=== PATIENT | female | born 1935 | race Caucasian/White ===

== ENCOUNTER 2022-04-22 10:41 | Inpatient (IN) | payer OTHER ==
[~2022-04-22] VITALS: Ht 162.6 cm; Wt 63.5 kg
[2022-04-22 12:36] LABS: HEMOGLOBIN 11.7 gm/dl (12.3-15.3); RED BLOOD COUNT 4.09 M/UL (4.00-5.10); WHITE BLOOD COUNT 16.5 K/UL (4.5-11.0)
[2022-04-22] MEDS ORDERED: CITALOPRAM HBR10 MG PO (15:27)
[2022-04-22] MEDS ORDERED: OMEPRAZOLE40 MG PO (15:28)
[2022-04-22] MEDS ORDERED: FUROSEMIDE20 MG PO (15:28)
[2022-04-22] MEDS ORDERED: ARICEPT5 MG PO (15:29)
[2022-04-22] MEDS ORDERED: ULTRAM50 MG PO (15:29)
[2022-04-22] MEDS ORDERED: NORVASC10 MG PO (15:29)
[2022-04-22] MEDS ORDERED: ACETAMINOPHEN500 MG PO (15:30)
[2022-04-23 03:55] LABS: HEMOGLOBIN 11.9 gm/dl (12.3-15.3); RED BLOOD COUNT 4.13 M/UL (4.00-5.10); WHITE BLOOD COUNT 13.4 K/UL (4.5-11.0)
[2022-04-24 02:55] LABS: WHITE BLOOD COUNT 12.5 K/UL (4.5-11.0)
[2022-04-24 02:56] LABS: HEMOGLOBIN 9.9 gm/dl (12.3-15.3); RED BLOOD COUNT 3.42 M/UL (4.00-5.10)
[2022-04-24 09:30] LABS: RED BLOOD COUNT 3.53 M/UL (4.00-5.10)
[2022-04-24 09:38] LABS: WHITE BLOOD COUNT 20.9 K/UL (4.5-11.0)
--- NOTE | 2022-04-24 09:44 | NUR ---
0710 - PATIENT LEFT THE FLOOR VIA BED TO SURGERY FOR LEFT HIP REPAIR.
[2022-04-25 04:46] LABS: HEMOGLOBIN 10.3 gm/dl (12.3-15.3); RED BLOOD COUNT 3.62 M/UL (4.00-5.10); WHITE BLOOD COUNT 19.6 K/UL (4.5-11.0)
[2022-04-26 04:33] LABS: HEMOGLOBIN 9.8 gm/dl (12.3-15.3); RED BLOOD COUNT 3.45 M/UL (4.00-5.10)
[2022-04-26 04:42] LABS: WHITE BLOOD COUNT 14.5 K/UL (4.5-11.0)
[2022-04-27 08:12] LABS: RED BLOOD COUNT 3.13 M/UL (4.00-5.10); WHITE BLOOD COUNT 14.4 K/UL (4.5-11.0)
[2022-04-27 08:25] LABS: BUN/CREATININE RATIO 19 (0-10)
[2022-04-27] MEDS ORDERED: IPRAT-ALBUT 0.5-3 ML NEB (14:12)
[2022-04-27] MEDS ORDERED: FERROUS SULFAT325 M2 PO (14:12)
[2022-04-27] MEDS ORDERED: CALCIUM500 M1 PO (14:12)
[2022-04-27] MEDS ORDERED: ENOXAPARIN40 MG/0.4 SC (14:12)
[2022-04-27] MEDS ORDERED: ULTRAM50 MG PO (15:20)
--- NOTE | 2022-04-27 15:44 | NUR ---
REPORT GIVEN TO JOE LOJA AT [facility] AT THIS TIME. PATIENT GOING TO [facility] FLOOR AND ROOM #[id number]
--- NOTE | 2022-04-27 15:46 | NUR ---
CALLED [facility] AT THIS TIME AND SCHEDULED TRANSPORT FOR THE PATIENT TO GO TO [facility]. REPORTS "THEY WILL BE HERE SOON THEY CAN" NO ETA GIVEN AT THIS TIME.
[2022-04-28 06:58] LABS: HEMOGLOBIN 9.6 gm/dl (12.3-15.3); RED BLOOD COUNT 3.38 M/UL (4.00-5.10); WHITE BLOOD COUNT 14.7 K/UL (4.5-11.0)
[2022-04-28] MEDS ORDERED: CEFUROXIME250 MG PO (13:29)
[2022-04-28] MEDS ORDERED: POTASSIUM CHLO20 ME1 PO (13:29)
--- NOTE | 2022-04-28 14:07 | NUR ---
ASCENCION [facility]YLER AND GAVE REPORT TO [facility] WHO IS EXPECTING THE PATIENT.
== END 2022-04-28 14:41 | DRG 481 ==
LOC: ER1 10:41 → M/S 15:02 → CDU 15:02 → M/S 23:11
PROVIDERS: Family Medicine; Internal Medicine; Orthopaedic Surgery; Physician Assistant Medical; ADMIT Internal Medicine
PROC: 0QPC04Z Removal of Internal Fixation Device from Left Lower Femur, Open Approach (ICD-10-PCS; 2022-04-24)
PROC: 0QS706Z Reposition Left Upper Femur with Intramedullary Internal Fixation Device, Open Approach (ICD-10-PCS; principal; 2022-04-24 07:30)
DX: S72.142A Displaced intertrochanteric fracture of left femur, initial encounter for closed fracture (principal); M87.851 Other osteonecrosis, right femur; N30.00 Acute cystitis without hematuria; I10 Essential (primary) hypertension; F03.90 Unspecified dementia, unspecified severity, without behavioral disturbance, psychotic disturbance, mood disturbance, and anxiety; W18.39XA Other fall on same level, initial encounter; E87.6 Hypokalemia; Z96.698 Presence of other orthopedic joint implants; D64.9 Anemia, unspecified; K21.9 Gastro-esophageal reflux disease without esophagitis; Z90.710 Acquired absence of both cervix and uterus; Z83.3 Family history of diabetes mellitus; Z82.49 Family history of ischemic heart disease and other diseases of the circulatory system; Y92.009 Unspecified place in unspecified non-institutional (private) residence as the place of occurrence of the external cause
CPT/HCPCS: 36415; 70450; 71045; 72170; 73502; 73552; 73560; 73600; 73700; 76000; 80048; 80053; 80202; 81001; 82550; 82553; 83540; 83550; 83735; 83880; 84132; 84484; 85025; 85027; 85610; 86850; 86900; 86901; 87040; 87081; 87086; 94640; 94664; 94760; 96365; 96375; 96376; 97110; 97110-GP-CQ; 97162; 97166; 97530; 97530-GP-CQ; 99285; C1713; J0690; J1100; J1170; J1650; J2001; J2270; J2405; J2543; J2704; J2710; J3010; J3370; J3480; J7070